=== PATIENT | male | born 1995 | race Caucasian/White ===

== ENCOUNTER 2016-11-10 12:24 | Inpatient (IN) | payer OTHER ==
[~2016-11-10] VITALS: Ht 190.5 cm; Wt 110.7 kg
--- NOTE | ~2016-11-10 | PA ---
Unit #: [id number] #: [id number] Patient: MALA BARRIOS [id number] [facility] [address] [place] [address] [id number] MR#: [id number] NAME: MALA BARRIOS ROOM: P183 Age: 21 Sex: M Admission Date: 11/10/2016 : 1995 Date of Assessment: 11/11/2016 Attending Physician: Dale Carrera M.D. Admitting Physician: Dale Carrera M.D. Primary Care Physician: Primary Care Physician No PSYCHIATRIC ASSESSMENT INFORMANTS The patient, reliable and OLOP, reliable. CHIEF COMPLAINT "I'm still using." HISTORY OF PRESENT ILLNESS Mr. Barrios is a 21-year-old man, who has been in our intensive outpatient program for chemical dependence. He was using Xanax, diazepam, and marijuana daily in the program and occasionally has overdosed on heroin. He was noted to be extremely sedated during the [facility] and was discharged from that facility to come to this facility for further assessment and treatment and detox. He had suicidal ideation, but contracted for safety. PAST PSYCHIATRIC HISTORY As noted, the patient has been at the [facility] recently as well as at the [facility], [facility], [facility], and the [facility] in the past. He has been taking Suboxone, but has also been using while on this medication. FAMILY PSYCHIATRIC HISTORY The patient's father was reportedly a paranoid schizophrenic and his mother has unspecified mental health issues. SOCIAL HISTORY The patient denied a history of childhood abuse or neglect. He is a single heterosexual man, who is currently on probation for a DVO and had previous charges for shoplifting. He is a high-school graduate, who has gone to [employer] school and was working as a maintenance construction helper. He lives with his grandmother, who is reportedly a user of cannabis. PAST MEDICAL HISTORY Significant for hypertension. MEDICATION Clonidine 0.1 mg t.i.d. as needed for high blood pressure. ALLERGIES No known medication allergies. SUBSTANCE USE HISTORY As noted, the patient has an extensive history of chemical dependence, Unit #: [id number] #: [id number] Patient: MALA BARRIOS which has included benzodiazepines, opioids, alcohol, cannabis, and illicit amphetamines. MENTAL STATUS EXAMINATION Mala presented as disheveled man, appearing older than his stated age. He was cooperative with the examination. His speech was spontaneous and easily understood. Musculoskeletal examination was calm. His mood was irritable with a congruent affect. He was alert and fully oriented. His memory and concentration were fair. His thought processes were goal directed with no active psychosis. He now denied suicidal ideation, intent, or plan. Insight and judgment were fair. Fund of knowledge and abstraction were fair. ASSETS AND LIABILITIES The patient knows local resources and presents voluntarily for treatment. Liabilities include difficulty maintaining sobriety. ADMITTING DIAGNOSES AXIS I: Benzodiazepine dependence with withdrawal and opioid dependence with withdrawal. AXIS II: Diagnosis deferred. AXIS III: Polysubstance detox. AXIS IV: AXIS V: PSYCHIATRIC PLAN The patient was admitted and placed on the benzodiazepine detox protocol. Trazodone will be provided for insomnia. He will enroll in psychotherapy groups and activities with dual diagnosis focus. TREATMENT GOALS Establishment of sobriety, improvement in insight, and improvement in coping skills. DISCHARGE PLANNING Follow up with IOP. ESTIMATED LENGTH OF STAY 5 days. Dictated by... Dale Carrera M.D. [facility]/jerrod TD: 11/12/2016 17:14 JOB #: [id number] Unit #: [id number] #: [id number] Patient: MALA BARRIOS PSYCHIATRIC ASSESSMENT Page 1 of 1 X Dale Carrera MD X PSYCHIATRIC ASSESSMENT
--- NOTE | ~2016-11-10 | DS ---
Unit #: [id number] #: [id number] Patient: MALA BLANTON [id number] [facility] [address] [place] [address] [id number] MR#: [id number] NAME: MALA BLANTON ROOM: [facility] Age: 21 Sex: M Admission Date: 11/10/2016 : 1995 Discharge Date: 11/12/2016 Attending Physician: Dale Carrera M.D. Primary Care Physician: Primary Care Physician No DISCHARGE SUMMARY REASON FOR ADMISSION Mala is a 21-year-old man, who was at our intensive outpatient program for chemical dependence, but was found to be using despite compliance with Suboxone and followup. He has been using both benzodiazepines and heroin and had vague suicidal ideation. He was admitted for detox and stabilization. DIAGNOSTIC STUDIES LABORATORY RESULTS: Please see hospital chart. HOSPITAL COURSE The patient was admitted and placed on the benzodiazepine detox protocol. Urine drug screen was positive for marijuana, opiates, and benzodiazepines. He had a brief inpatient stay and was generally irritable and did not attend any psychotherapy groups in the hospital. He claimed that he was singled out by staff for the intensive outpatient program, but had no further SI or HI and was discharged in stable condition. DISCHARGE DIAGNOSES AXIS I: Benzodiazepine abuse, opioid abuse, cannabis abuse. AXIS II: No diagnosis. AXIS III: Polysubstance withdrawal, resolved; history of hepatitis C. AXIS IV: AXIS V: DISCHARGE INSTRUCTIONS Follow up with [facility] at our facility. DISCHARGE MEDICATIONS None. CONDITION AT DISCHARGE Improved. PROGNOSIS Fair. DIET AND ACTIVITY Ad chhaya. Unit #: [id number] #: [id number] Patient: MALA BLANTON Dictated by... Dale Carrera M.D. [facility]/jerrod TD: 11/12/2016 18:16 JOB #: [id number] DISCHARGE SUMMARY Page 1 of 1 X Dale Carrera MD X DISCHARGE SUMMARY
--- NOTE | ~2016-11-10 | HP ---
Unit #: [id number] #: [id number] Patient: MALA BLANTON [id number] [facility] [address] [place] [address] [id number] MR#: [id number] NAME: MALA BLANTON ROOM: P183 Age: 21 Sex: M Admission Date: 11/10/2016 : 1995 Attending Physician: Niki Michael M.D. Admitting Physician: Niki Michael M.D. Primary Care Physician: Primary Care Physician No HISTORY AND PHYSICAL HISTORY OF PRESENT ILLNESS Mala is a 21 year old admitted to [facility] because of his polysubstance abuse which includes benzodiazepines and IV heroin. PAST MEDICAL HISTORY 1. Long history of illicit substance abuse to include benzodiazepines and IV heroin. 2. Hepatitis C. 3. High blood pressure. PAST SURGICAL HISTORY Right hand. ALLERGIES No known drug allergies. SOCIAL HISTORY He smokes greater than one pack per day. Denies alcohol. Admits to a long history of illicit substance abuse to include benzodiazepines and IV heroin. FAMILY HISTORY Medically noncontributory. REVIEW OF SYSTEMS CONSTITUTIONAL: No fever or chills. HEENT: Denies any sore throat, ear pain or runny nose. CARDIOVASCULAR: Denies chest pain, irregular heart rhythm or palpitations. CHEST: Denies shortness of breath or cough. No hemoptysis. GASTROINTESTINAL: Denies nausea, vomiting, diarrhea or chronic constipation. ENDOCRINE: Denies history of increased thirst or urination. No recent significant weight loss or gain. GENITOURINARY: Denies dysuria, frequency, or hematuria. SKIN: Denies any rashes. HEMATOLOGIC: Denies history of increased bleeding or bruising. MUSCULOSKELETAL: Denies any hot, swollen joints. No generalized muscle pain. NEUROLOGIC: Denies problems with vision or speech. No frequent, severe headaches. No numbness, tingling or weakness in any extremities. Denies loss of bladder or bowel control. Unit #: [id number] #: [id number] Patient: MALA BLANTON CURRENT MEDICATIONS Detox protocol. PHYSICAL EXAMINATION GENERAL: Alert, well-nourished, in no apparent distress. VITAL SIGNS: Blood pressure 144/86, heart rate 80, respirations 16, temperature 98.6. WEIGHT: 244 pounds. HEIGHT: 6 foot 3 inches. SKIN: Warm and dry without rash. He does have multiple abrasions. There is no increased redness, swelling, heat or pus noted. HEENT: Normocephalic. TMs not viewed. Oral and nasal passages clear. Conjunctivae clear. Pupils equal, round and reactive to light and accommodation. Extraocular movements intact. NECK: Supple without lymphadenopathy or thyromegaly. HEART: Regular rate and rhythm without murmur. LUNGS: Clear. ABDOMEN: Soft, nontender. : Not done. EXTREMITIES: No evidence of cyanosis, clubbing or edema. Moves all extremities without focal deficit. NEUROLOGICAL: Grossly within normal limits. Cranial Nerves: II: Visual ching are intact. III, IV AND : Extraocular movements are intact. Pupils are equal, round and reactive to light. V: Facial sensation is grossly normal. VII: Facial movements and expression are normal. VIII: Auditory acuity grossly intact. IX, X: Uvula is midline. Phonation is normal. XI: Patient shrugs shoulders and turns head normally. XII: Tongue protrudes in the midline. Sensory and Motor Function: Sensory and motor sensation is grossly normal. Motor: moves all extremities well. Coordination: Gait is normal. Deep Tendon Reflexes: Intact. IMPRESSION Psychiatric admission RECOMMENDATIONS PSYCHIATRIC: Per psychiatrist. MEDICAL: I see no contraindications to participating in facility's activities. MEDICAL PROGNOSIS Good. MEDICAL CONDITION Stable. Dictated by... Denia House P.A.-C. for Yarelis Johnson/tanna Unit #: [id number] #: [id number] Patient: MALA BLANTON TD: 11/11/2016 01:09 JOB #: [id number] HISTORY AND PHYSICAL Page 1 of 1 X Denia House HISTORY AND PHYSICAL
[2016-11-11 09:54] LABS: EOSINOPHIL# 0.3 X10e3 (0-0.7); EOSINOPHIL% 5.1 % (0.0-7.0); HEMATOCRIT 44.8 % (38.0-50.0); HEMOGLOBIN 15.1 gm/dL (13.0-16.0); LYMPHOCYTE# 2.1 X10e3 (1.0-3.5); LYMPHOCYTE% 38.2 % (17.0-45.0); MEAN CORPUSCULAR HEMOGLOBIN 29.4 PG (28-34); MEAN CORPUSCULAR HGB CONC 33.8 g/dL (30-36); MEAN PLATELET VOLUME 8.3 FL (6.5-11.5); MONOCYTE# 0.9 X10e3 (0-1.0); MONOCYTE% 15.9 % (3.0-12.0); NEUTROPHIL# 2.2 X10e3 (1.5-7.1); NEUTROPHIL% 40.8 % (40-75); PLATELET COUNT 159 X10e3 (140-420); RED BLOOD COUNT 5.15 X10e (3.90-5.60); RED CELL DISTRIBUTION WIDTH 13.9 % (11.0-15.5); WHITE BLOOD COUNT 5.5 X10e3 (4.0-10.5)
[2016-11-11 09:59] LABS: DIFF IND NO
[2016-11-11 10:29] LABS: BILIRUBIN,TOTAL 0.6 mg/dL (0.2-2.0); CALCIUM SERUM 9.2 mg/dL (8.4-10.2); GLOM FILT RATE Estimated 105.6 mL/min (>60); POTASSIUM 4.3 mmol/L (3.5-5.1); PROTEIN TOTAL SERUM 6.7 g/dL (6.0-8.3)
[2016-11-12 09:40] LABS: URINE APPEARANCE TURBID; URINE BILIRUBIN NEG (NEG); URINE BLOOD NEG (NEG); URINE COLOR YELLOW; URINE GLUCOSE NEG (NEG); URINE KETONE NEG (NEG); URINE LEUKOCYTE ESTERASE NEG (NEG); URINE NITRATE NEG (NEG); URINE PH 8.5 (5-8); URINE PROTEIN NEG (NEG); URINE SPECIFIC GRAVITY 1.021 (1.003-1.035)
[2016-11-12 10:32] LABS: AMPHETAMINE NEG (NEG); BARBITURATES NEG (NEG); BENZODIAZEPINES POS (NEG); COCAINE NEG (NEG); MARIJUANA POS (NEG); OPIATES POS (NEG); TRICYCLIC ANTIDEPRESSANTS NEG (NEG); U METHADONE NEG (NEG)
== END 2016-11-12 13:00 | DRG 897 ==
LOC: P1E 14:03
PROVIDERS: Psychiatry & Neurology Psychiatry
PROC: HZ2ZZZZ Detoxification Services for Substance Abuse Treatment (ICD-10-PCS; principal; 2016-11-10)
DX: F13.239 Sedative, hypnotic or anxiolytic dependence with withdrawal, unspecified (principal); F11.23 Opioid dependence with withdrawal; F31.9 Bipolar disorder, unspecified; B19.20 Unspecified viral hepatitis C without hepatic coma; F12.10 Cannabis abuse, uncomplicated
CPT/HCPCS: 80053; 80307; 81003; 82542; 85025; 86592; 90853